=== PATIENT | female | born 1980 | race Caucasian/White ===

== ENCOUNTER 2019-02-21 18:04 | Emergency (ER) | payer MEDICAID ==
[~2019-02-21] VITALS: Ht 165.1 cm; Wt 81.5 kg
[~2019-02-21 18:04] MED LIST: DENIES
[2019-02-21 18:12] VITALS: BP 124/60; PULSE 93; RESP 20; Ht 165.1 cm; Wt 81.5 kg
[2019-02-21] MEDS ORDERED: PENICILLIN G BENZ 1.2 MIL UNIT SYG IM ONE (18:30)
[2019-02-21] MEDS ORDERED: ONDA4TAB14 PO (18:34)
--- NOTE | 2019-02-21 18:35 | ERD ---
ER Documentation Chief Complaint Chief Complaint Pt with c/o fever, ST and body aches since yesterday. HPI 38-year-old female presents the ED complaining of fever, sore throat and body aches since yesterday. She reports that she feels really bad and that her throat hurts 8 out of 10 intensity. She reports that she is tried Motrin at home with no relief of her symptoms. She states that she is very fatigued and has energy to do anything. She reports this all began yesterday morning suddenly and she denies any recent travel outside of the country or sick contacts. She denies cough or abdominal pain but does report some nausea. She reports fevers over 100 F at home. She states that is difficult for her to eat and drink anything due to the severity of her throat pain ROS All systems reviewed and are negative except as per history of present illness. Medications Home Meds Active Scripts Ibuprofen* (Motrin*) 600 Mg Tab, 600 MG PO Q6H PRN for PAIN AND OR ELEVATED TEMP, #30 TAB Prov:ERLIN ANAYA PA-C 02/21/19 Ondansetron (Ondansetron Odt) 4 Mg Tab.rapdis, 4 MG PO Q6H PRN for NAUSEA AND/OR VOMITING, #10 TAB Prov:ERLIN ANAYA PA-C 02/21/19 Reported Medications [Denies] No Conflict Check 07/18/10 Allergies Allergies: Coded Allergies: No Known Drug Allergies (Verified Allergy, Mild, 07/18/10) PMhx/Soc Medical and Surgical Hx: pt denies Medical Hx History of Surgery: Yes (C SEC X'S 2 ) Anesthesia Reaction: No Hx Neurological Disorder: No Hx Respiratory Disorders: No Hx Cardiac Disorders: No Hx Psychiatric Problems: No Hx Miscellaneous Medical Probl: No Hx Alcohol Use: No Hx Substance Use: No Hx Tobacco Use: No Smoking Status: Never smoker FmHx Family History: No diabetes Physical Exam Vitals Vital Signs Date Temp Pulse Resp B/P (MAP) Pulse Ox O2 O2 Flow FiO2 Time Delivery Rate 02/21/19 102.7 93 20 124/60 100 18:12 (81) Physical Exam Const: No acute distress Head: Atraumatic Eyes: Normal Conjunctiva ENT: Normal External Ears, Nose and Mouth. Throat: Erythematous, tonsils with exudates Neck: Anterior Cervical LAD Resp: Clear to auscultation bilaterally Cardio: Regular rate and rhythm, no murmurs Abd: Soft, non tender, non distended. Normal bowel sounds Skin: No petechiae or rashes Back: No midline or flank tenderness Ext: No cyanosis, or edema Neur: Awake and alert Psych: Normal Mood and Affect Results 24 hrs Current Medications Medications Dose Sig/Gray Start Time Status Last (Trade) Ordered Route PRN Stop Time Admin Dose Reason Admin Penicillin 1,200,000 ONCE ONCE 02/21/19 DC G units IM 18:30 Benzathine 02/21/19 18:34 (Bicillin La) Procedures/MDM ED COURSE: The patient was stable throughout ED course. I kept the patient informed of laboratory and diagnostic imaging results throughout the ED course. PROCEDURES: none MEDICATIONS GIVEN: Penicillin injection Patient tolerated medication well with no adverse reactions. Patient reported i mprovement in pain. MEDICAL DECISION MAKING: Patient is a 38-year-old female complaining of sore throat and fever x1 day. P atient on physical exam has absence of cough, anterior cervical lymphadenopathy, tonsils with exudates. Patient's physical exam is consistent with presumed strep pharyngitis. Based on [facility] Criteria, patient has reported fever at home, exudates on tonsils, no cough. Patient's physical exam include lungs which were clear to auscultation and a normal pulse oximetry. Bilateral ears pearly scott. No tenderness to palpation of tragus or mastoid. Low suspicion for mastoiditis, otitis externa, otitis media. Patient is speaking in full sentences. There is a low suspicion for pneumonia, epiglottitis, croup, sinusitis, peritonsillar abscess, hands foot mouth disease, scarlet fever, kawasaki disease, retropharyngeal abscess, meningitis, sepsis, acute abdomen or other emergent conditions. Vital signs were reviewed. Patient is afebrile. Patient was not hypoxic. Patient was hemodynamically stable. Patient asked for shot of antibiotics instead of p.o. antibiotics so she was given a penicillin injection in the ED. PRESCRIPTION: Zofran DISCHARGE: At this time, patient is stable for discharge and outpatient management. I have instructed the patient to follow-up with his/her primary care physician in 1-2 days. I have discussed with the patient the possibility of needing to see a specialist for further workup and imaging studies if symptoms persist. I have instructed the patient to promptly return to the ER for any new or worsening symptoms including increased pain, fever, nausea, vomiting, weakness or LOC. The patient and/or family expressed understanding of and agreement with this plan. All questions were answered. Home care instructions were provided. Disclaimer: Inadvertent spelling and grammatical errors are likely due to EHR/dictation software use and do not reflect on the overall quality of patient care. Also, please note that the electronic time recorded on this note does not necessarily reflect the actual time of the patient encounter. Departure Diagnosis: Primary Impression: Strep throat Additional Impression: Nausea Condition: Fair Patient Instructions: Strep Throat Referrals: [facility] YOU HAVE RECEIVED A MEDICAL SCREENING EXAM AND THE RESULTS INDICATE THAT YOU DO NOT HAVE A CONDITION THAT REQUIRES URGENT TREATMENT IN THE EMERGENCY DEPARTMENT. FURTHER EVALUATION AND TREATMENT OF YOUR CONDITION CAN WAIT UNTIL YOU ARE SEEN IN YOUR DOCTORS OFFICE WITHIN THE NEXT 1-2 DAYS. IT IS YOUR RESPONSIBILITY TO MAKE AN APPOINTMENT FOR FOLOW-UP CARE. IF YOU HAVE A PRIMARY DOCTOR --you should call your primary doctor and schedule an appointment IF YOU DO NOT HAVE A PRIMARY DOCTOR YOU CAN CALL OUR PHYSICIAN REFERRAL HOTLINE AT IF YOU CAN NOT AFFORD TO SEE A PHYSICIAN YOU CAN CHOSE FROM THE FOLLOWING [facility] [address] [facility]. [facility] [address] [facility]. [facility] [address] [facility] [address]. [facility] [address] [facility]. [facility]. [address] [facility]. [facility] YOU HAVE RECEIVED A MEDICAL SCREENING EXAM AND THE RESULTS INDICATE THAT YOU DO NOT HAVE A CONDITION THAT REQUIRES URGENT TREATMENT IN THE EMERGENCY DEPARTMENT. FURTHER EVALUATION AND TREATMENT OF YOUR CONDITION CAN WAIT UNTIL YOU ARE SEEN IN YOUR DOCTORS OFFICE WITHIN THE NEXT 1-2 DAYS. IT IS YOUR RESPONSIBILITY TO MAKE AN APPOINTMENT FOR FOLOW-UP CARE. IF YOU HAVE A PRIMARY DOCTOR --you should call your primary doctor and schedule and appointment IF YOU DO NOT HAVE A PRIMARY DOCTOR YOU CAN CALL OUR PHYSICIAN REFERRAL HOTLINE AT . IF YOU CAN NOT AFFORD TO SEE A PHYSICIAN YOU CAN CHOSE FROM THE FOLLOWING [facility] INSTITUTIONS: [facility] [address] [place] [address] [facility] [address] [place] [address] [facility] [address] [place] [address] Additional Instructions: Call your primary care doctor TOMORROW for an appointment during the next 1-2 days.See the doctor sooner or return here if your condition worsens before your appointment time. ERLIN ANAYA PA-C Feb 21, 2019 18:35
[2019-02-21] MEDS ORDERED: IBUP-1542 PO (18:37)
[2019-02-21] MEDS ORDERED: ACETAMINOPHEN 325 MG TAB PO ONE (19:30)
== END 2019-02-21 19:36 | disposition home or self-care (01) ==
LOC: FTE 18:04
DX: J02.9 Acute pharyngitis, unspecified (principal); R11.0 Nausea
CPT/HCPCS: 96372; J0561; Z7502; Z7610